=== PATIENT | male | born 1955 | race Hispanic/Latino ===

== ENCOUNTER → 2017-11-20 | Outpatient (CLI) | payer OTHER ==
[2017-11-20 08:07] LABS: BASOPHILS % 0.5 % (0.0-1.0); EOSINOPHILS # (AUTO) 0.2 (0.0-0.4); EOSINOPHILS % 3.1 % (0.0-6.0); HEMATOCRIT 46.1 % (38.2-49.6); HEMOGLOBIN 15.5 g/dL (14.0-18.0); LYMPHOCYTES # (AUTO) 2.5 (1.0-3.2); LYMPHOCYTES % 31.5 % (18.0-39.1); MEAN CORPUSCULAR HEMOGLOBIN 29.8 pg (28-32); MEAN CORPUSCULAR HGB CONC 33.6 g/dL (31-35); MEAN CORPUSCULAR VOLUME 88.7 fL (81-99); MONOCYTES # (AUTO) 0.7 (0.2-0.8); MONOCYTES % 9.2 % (4.4-11.3); NEUTROPHILS # (AUTO) 4.3 (2.1-6.9); NEUTROPHILS % 55.4 % (38.7-80.0); PLATELET COUNT 248 x10e3/uL (140-360); RED CELL DISTRIBUTION WIDTH 13.6 % (11.7-14.4)
[2017-11-20 08:19] LABS: BILIRUBIN,URINE NEGATIVE (NEGATIVE); CLARITY,URINE CLEAR (CLEAR); COLOR,URINE YELLOW (YELLOW); KETONES,URINE NEGATIVE (NEGATIVE); LEUKOCYTE ESTERASE ,URINE NEGATIVE (NEGATIVE); NITRITE,URINE NEGATIVE (NEGATIVE); PROTEIN,URINE DIPSTICK NEGATIVE (NEGATIVE); URINE UROBILINOGEN 0.2 mg/dL (0.2 - 1)
[2017-11-20 08:23] LABS: INR 0.95; PROTHROMBIN TIME 11.9 seconds (11.9-14.5)
[2017-11-20 08:24] LABS: PARTIAL THROMBOPLASTIN TIME 24.6 seconds (23.8-35.5)
--- NOTE | 2017-11-20 08:25 | Diagnostic Imaging Report ---
PROCEDURE:CHEST 2 VIEWS TECHNIQUE:PA and lateral chest INDICATION:Right upper quadrant pain. COMPARISON:None. FINDINGS: Lungs are clear and symmetrically inflated. No pleural effusions. Normal heart size, mediastinal contour, and pulmonary vasculature. Intact skeleton. CONCLUSION: No acute abnormality. Dictated by: Vasu Malik M.D. on 11/20/2017 at 8:28 Electronically approved by: Vasu Malik M.D. on 11/20/2017 at 8:28
[2017-11-20 08:29] LABS: ALANINE AMINOTRANSFERASE 88 IU/L (0-55); ALBUMIN 3.8 g/dL (3.5-5.0); ALBUMIN/GLOBULIN RATIO 1.2 (0.8-2.0); ALKALINE PHOSPHATASE 132 IU/L (40-150); ANION GAP 11.4 mmol/L (8-16); BLOOD UREA NITROGEN 21 mg/dL (7-26); BUN/CREATININE RATIO 25 (6-25); CALCIUM 9.3 mg/dL (8.4-10.2); CARBON DIOXIDE 24 mmol/L (22-29); CHLORIDE 107 mmol/L (98-107); CREATININE, SERUM 0.84 mg/dL (0.72-1.25); EST GLOMERULAR FILTRATION RATE > 60 ML/MIN (60-); GLUCOSE 99 mg/dL (74-118); POTASSIUM 4.4 mmol/L (3.5-5.1); SODIUM 138 mmol/L (136-145)
--- NOTE | 2017-11-20 09:30 | Diagnostic Imaging Report ---
Right upper quadrant ultrasound, 11/20/2017 Clinical history: Cholelithiasis Comparison: None Technique: Grayscale and color Doppler ultrasound right upper quadrant. Findings: Inferior vena cava and abdominal aorta: Imaged segments of the IVC and aorta are of normal caliber. Pancreas: Imaged segments are normal. Liver: Right liver span: 15.6 cm. Increased parenchymal echogenicity with a nodular liver margin. Portal vein diameter: 1.3 cm; normal flow direction. Gallbladder: Multiple calcified stones in small-volume sludge. Wall thickness 0.3 cm. Common bile duct diameter: 0.4 cm. Right kidney: Span: 10.5; Normal kidney. Impression: Cholelithiasis. Echogenic liver with a slightly nodular margin suggesting steatosis with developing cirrhosis. This report was generated with voice-recognition technology. Errors in chief of pediatric urology can occur. Please interpret accordingly and contact a radiologist if there are any questions regarding the report. Signed by: Dr. Vasu Malik M.D. on 11/20/2017 9:27 AM
== END ==
LOC: US 07:23
PROVIDERS: ATTEND Surgery
DX: R10.11 Right upper quadrant pain (principal); K80.20 Calculus of gallbladder without cholecystitis without obstruction
CPT/HCPCS: 36415; 71046; 76705; 80053; 81003; 85025; 85610; 85730; 93005

== ENCOUNTER → 2017-12-04 | Day surgery (SDC) | payer OTHER ==
[~2017-12-04] MED LIST: BUPIVACAINE 0.25%/EPI 30ML SDV INJ ONE; DEXAMETHASONE SOD PHOS INJ 4 MG/ML VIAL ONE; FENTANYL CITRATE/PF 100MCG/2 ML INJ ONE; HYDRALAZINE HCL 20 MG/ML VIAL ONE; HYDROCODONE/APAP 7.5MG-325MG 1 EA TAB ONE; LIDOCAINE HCL 2% JELLY 5 ML TUBE ONE; LIDOCAINE HCL 2% LOCAL INJ 5 ML SDV VIAL INJ ONE; MIDAZOLAM HCL 2 MG/2 ML VIAL ONE; ONDANSETRON HCL INJ 2 MG/ML VIAL ONE; PROPOFOL IV EMULSION 10 MG/ML 20 ML VIAL ONE; ROCURONIUM BROMIDE 10 MG/ML 5ML VIAL ONE; SEVOFLURANE INHAL SOLN 250 ML PEN BTL ONE
--- OUTSIDE RECORDS SUMMARY | 2017-12-04 05:19 | XMS REPORT ---
Author Author [facility] Address Unknown Phone Unavailable Care Team Providers Care Leather Etcher Name Role Phone AMIE POE Unavailable Unavailable Problems This patient has no known problems. Allergies, Adverse Reactions, Alerts This patient has no known allergies or adverse reactions. Medications This patient has no known medications. Results Test Description Test Time Test Comments Text Results Atomic Results Result Comments GALLBLADDER [place] [address] Patient Name: CHASITY HUGHES MR #: [id number] : 1955 Age/Sex: 62/M Req #: [id number] Adm Physician: Ordered by: AMIE POE MD Report #: [id number] Location: Room/Bed: Procedure: 0525- 0003 US/US GALLBLADDER Exam Date: 11/20/17 Exam Time : 810 REPORT STATUS: Signed Right upper quadrant ultrasound, 2017 Clinical history: Cholelithiasis Comparison: None Technique: Grayscale and color Doppler ultrasound right upper quadrant. Findings: Inferior vena cava and abdominal aorta: Imaged segments of the IVC and aorta are of normal caliber. Pancreas: Imaged segments are normal. Liver: Right liver span: 15.6 cm. Increased parenchymal echogenicity with a nodular liver margin. Portal vein diameter: 1.3 cm; normal flow direction. Gallbladder: Multiple calcified stones in small-volume sludge. Wall thickness 0.3 cm. Common bile duct diameter: 0.4 cm. Right kidney: Span: 10.5; Normal kidney. Impression: Cholelithiasis. Echogenic liver with a slightly nodular margin suggesting steatosis with developing cirrhosis. This report was generated with voice-recognition technology. Errors in woodworking belt sander can occur. Please interpret accordingly and contact a radiologist if there are any questions regarding the report. Signed by: Dr. Surya Malik M.D. on 11/20/2017 9:27 AM Dictated By: SURYA MALIK MD 6 Transcribed By: LUIGI on 11/20/17926 COPY TO: AMIE POE MD CHEST 2 VIEWS [place] [address] Patient Name: CHASITY HUGHES MR #: [id number] : 1955 Age/Sex: 62/M Req #: [id number] Adm Physician: Ordered by: AMIE POE MD Report #: [id number] Location: Room/Bed: Procedure: [id number] 0017 DX/CHEST 2 VIEWS Exam Date: 11/20/17 Exam Time : 719 REPORT STATUS: Signed PROCEDURE: CHEST 2 VIEWS TECHNIQUE: PA and lateral chest INDICATION: Right upper quadrant pain. COMPARISON: None. FINDINGS: Lungs are clear and symmetrically inflated. No pleural effusions. Normal heart size, mediastinal contour, and pulmonary vasculature. Intact skeleton. CONCLUSION: No acute abnormality. Dictated by: Surya Malik M.D. on 11/20/2017 at 8:28 Electronically approved by: Surya Malik M.D. on 11/20/2017 at 8:28 Dictated By: SURYA MALIK MD 7 Transcribed By: LILIAN on 11/20/17827 COPY TO: AMIE POE MD
--- NOTE | 2017-12-04 09:49 | Operative Report ---
DATE OF PROCEDURE: December 04, 2017 PREOPERATIVE DIAGNOSES 1. Cholelithiasis. 2. Chronic cholecystitis. 3. Rule out cirrhosis of the liver. POSTOPERATIVE DIAGNOSES 1. Chronic cholecystitis. 2. Cholelithiasis. 3. Mild fatty liver infiltration. PROCEDURE PERFORMED: Laparoscopic cholecystectomy. RADIO DISC JOCKEY: ALLEN Chawla ESTIMATED BLOOD LOSS: Minimal. DRAINS: None. COMPLICATIONS: None. INDICATIONS AND FINDINGS: The patient is a 62-year-old male who had been complaining of pain in the right upper quadrant for several days associated with fatty food ingestion. Pain associated with vomiting. There was no diarrhea or rectal bleeding. Preoperatively, he had an ultrasound of the liver that revealed gallstones. No ductal dilatation. INTRAOPERATIVE FINDINGS: A mildly thickened gallbladder wall. A large stone in the area of the neck of the gallbladder. No ductal dilatation. There was some mild liver infiltration. There was no evidence of cirrhosis. Because of this, no biopsy was taken. The patient is a Taoist. DESCRIPTION OF PROCEDURE: With the patient lying on the operative table in the supine position, after administration of general anesthesia, he was prepped and draped for laparoscopic cholecystectomy. The procedure was begun by establishing a pneumoperitoneum in the umbilical site, after a stab wound was made in that location and the saline drop test was performed. A pneumoperitoneum was insufflated to 15 mm of pressure. Then the 10-11 trocar was placed in that location. The patient was rotated to the left and with the head up. Then we placed a 10-11 trocar in that location under direct vision with a camera. Two lateral working ports, 5 mm each, were placed in the right mid-clavicular line and right anterior axillary line. The gallbladder was retracted cephalad using grasping forceps and two 5-mm trocars, and the dissection on it was begun, exposing the cystic duct. The area of the neck of the gallbladder had a fair amount of fat, and we had to dissect through that to identify the cystic duct. The cystic duct was identified. The junction with the common bile duct was seen 360 degrees circumferentially and then clipped distally 3 times and once proximally. The cystic artery was identified coming off the hepatic artery and was transected between titanium clips also. Then the gallbladder was taken down from the liver bed using electrocautery dissection. The gallbladder was detached, placed in an Endo bag and removed through the umbilical port. Right upper quadrant was inspected. There was some minor oozing coming from the gallbladder bed fossa that was cauterized. Surgicel pad was placed. After ascertaining the hemostasis was absolute, we released the pneumoperitoneum under direct vision with the camera and closed the ports using #0 Vicryl for the umbilical port as well as subxiphoid port. The subcutaneous tissue in the umbilical port was closed. The subxiphoid port was closed in the subcutaneous tissue. The skin of all the ports was closed using zenaida. Then 0.25% Marcaine with epinephrine was given as a local block at the end of the case. The patient tolerated the procedure well and was taken to recovery room in stable condition. Job#: [id number]
== END | disposition home or self-care (01) ==
LOC: OR 05:16
PROVIDERS: ATTEND Surgery
DX: K80.10 Calculus of gallbladder with chronic cholecystitis without obstruction (principal); K76.0 Fatty (change of) liver, not elsewhere classified; N20.0 Calculus of kidney
CPT/HCPCS: 47562; 88304; C1766; J0360; J1100; J2001 ×2; J2250; J2405